=== PATIENT | female | born 1990 | race Caucasian/White ===

== ENCOUNTER 2020-11-09 16:54 | Emergency (ER) | payer BC, OTHER ==
[2020-11-09 17:07] VITALS: BP 119/82; PULSE 68
--- NOTE | 2020-11-09 17:15 | EDM.PDOC ---
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 Patient is roughly 17 weeks . She is a G3, P2. She states that she was trying to load her children into the car, when she slipped and ended up landing on her right side. It was shortly after the fall, that she developed some mild abdomen cramping and vaginal spotting, at first this was dark red to brown, and she notes that this is become more bright. She states this is spotting however not a gush of blood or fluids. She does note that the has been going well otherwise. She called her DATA WAREHOUSE MANAGER, Dr. Grayson, and she told her to come to the ER for evaluation. She did not take anything for the pain at home, and again notes this to be more of a abdomen cramp like she would feel when she would get her period. She would rate this a 3 out of 10 on the pain scale. She has not had any fevers or chills, cough/shortness of breath, nausea/vomiting/diarrhea. 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 ED EXAM - Physical Exam Exam: See Below Exam Limited By: No Limitations General Appearance: Alert, WD/WN, No Apparent Distress Respiratory/Chest: No Respiratory Distress, Lungs Clear, Normal Breath Sounds, No Accessory Muscle Use, Chest Non-Tender Cardiovascular: Normal Peripheral Pulses, Regular Rate, Rhythm, No Edema GI/Abdominal Exam: Normal Bowel Sounds, Soft, Non-Tender, No Distention, No Mass (Female) Exam: Normal Bimanual Exam, Vaginal Bleeding (scant amount). No: Cervical Dilatation, Cervical Fluid, Tissue Present in Cervix/Vagina Heart Tones: Present Heart Tones per Min: 144 Movement: Not Appreciated Neurological: Alert, Oriented, Normal Cognition, No Motor/Sensory Deficits Psychiatric: Normal Affect, Normal Mood Skin Exam: Warm, Dry, Intact, Normal Color, No Rash Course - Vital Signs Last Recorded V/S: Last Vital Signs Temp 98.9 F 11/09/20 17:03 Pulse 68 11/09/20 17:03 Resp 16 11/09/20 17:03 BP 119/82 11/09/20 17:03 Pulse Ox 100 11/09/20 17:03 - Orders/Labs/Meds Orders: Active Orders 24 hr Category Date Time Status RH IMMUNE GLOBULIN [BBK] Stat Lab 11/09/20 18:03 Results RHOGAM, [RHIG WORKUP, ] [BBK] Stat Lab 11/09/20 18:03 Results TYPE AND SCREEN [BBK] Stat Lab 11/09/20 18:03 Results Labs: Laboratory Tests 11/09/20 Range/Units 18:03 Blood Type O NEGATIVE Gel Antibody Screen Negative Rhogam Indicated Yes - Re-Assessments/Exams Free Text/Narrative Re-Assessment/Exam: 11/09/20 17:33 Patient presents to the ED for the evaluation of her fall in . Review of her old notes does indicate that she might be Rh-. We will ascertain if this is true, and she might need RhoGam since she is having some vaginal bleeding. We will get an abdominal ultrasound to evaluate for viability however we did get heart tones at 144 bpm, which is reassuring. 11/09/20 18:35 Ultrasound has been done, there is a hypoechoic area between the placenta and uterine wall which appears hypervascular by Doppler. Difficult to exclude hematoma interspersed with vascular elements. Follow-up is recommended in several days. Patient's uterine is low-lying, there is normal heart activity seen in the fetus is mobile. There is minimal debris seen next to the internal cervical os as well. Patient notes that she has been up to the bathroom multiple times since her ultrasound and her vaginal spotting has ceased. I did call Dr. Grayson, patient's DATA WAREHOUSE MANAGER and made her aware of these results, and she notes that follow-up in a few days, possibly Saturday early would be appropriate, patient is to call her office and make this appointment. 11/09/20 19:55 There has been some hesitation on the RhoGam injection, patient is not really wanting to get the RhoGam at today's visit however it is clinically indicated and Dr. Grayson has told me 3 different times on 3 different occasions that she would like the patient to have it. I did go over the clinical concerns regarding not getting the RhoGam however the patient still hesitant and is refusing at this time. She would like to talk with Dr. Terrell before doing this she is supposed to get close follow-up, but this is not guaranteed on when it can happen. I did again go over the maternal blood sharing, and how this puts her at risk for complications. Patient has still refused. Departure - Departure Time of Disposition: 18:37 Disposition: Home, Self-Care 01 Condition: Good Clinical Impression: Vaginal bleeding in - Discharge Information *PRESCRIPTION DRUG MONITORING PROGRAM REVIEWED*: No *COPY OF PRESCRIPTION DRUG MONITORING REPORT IN PATIENT KENNY: No Instructions: Subchorionic Hematoma Referrals: Nay Grayson MD [Primary Care Provider] - (f/u saturday or early , call to make the appt) Forms: ED Department Discharge Additional Instructions: You were evaluated in the ER today regarding your abdominal pain/vaginal bleeding in . You did have some labs drawn, and these were within normal limits, your blood type is O negative. You did NOT receive RhoGam at today's visit, This does put you at higher risk for spontaneous miscarriage and possible future complications. Your ultrasound demonstrated a mobile fetus, with a hypoechoic area between the placenta and uterine wall which could likely be a hematoma with a heart rate of 148 bpm. Follow-up is recommended in several days for repeat ultrasound. I did call Dr. Grayson and she states that you may follow-up on Saturday or early for repeat ultrasound. You will have to call her office and make this appointment, for reexamination. A copy of this note will be sent to her office for her review. Recommend that you do not lift anything heavier than a gallon of milk (5 lbs), do not engage in sexual activities, try to get as much pelvic rest as possible for the next few days. Please try not to exert yourself, rest and relax, and take it easy. If you are bleeding through more than 1-2 maxi pads every couple hours, this would be cause for concern to return to the ER for immediate management. Please return to the ED at any time if your symptoms change or worsen. Sepsis Event Note (ED) - Evaluation Sepsis Screening Result: No Definite Risk - Focused Exam Vital Signs: Vital Signs Temp Pulse Resp BP Pulse Ox 11/09/20 17:03 98.9 F 68 16 119/82 100 - My Orders Last 24 Hours: My Active Orders 11/09/20 18:03 RH IMMUNE GLOBULIN [BBK] Stat RHOGAM, [RHIG WORKUP, ] [BBK] Stat TYPE AND SCREEN [BBK] Stat - Assessment/Plan Last 24 Hours: My Active Orders 11/09/20 18:03 RH IMMUNE GLOBULIN [BBK] Stat RHOGAM, [RHIG WORKUP, ] [BBK] Stat TYPE AND SCREEN [BBK] Stat
--- NOTE | 2020-11-09 18:26 | US ---
Obstetrical ultrasound: Multiple real-time images were obtained transabdominally. Comparison: No previous study for current . presentation: Mobile Placenta: Anterior and low lying Amniotic fluid: KALIE 11.8 cm Hypoechoic area is identified between the placenta and uterine wall. This area is somewhat hypervascular. Difficult to completely exclude a hematoma interspersed with vascular elements. Follow-up is recommended. There is minimal area of debris in front of the internal cervical os. Cervical length is 4.3 cm. Heart rate is 148 bpm Impression: 1. Hypoechoic area between the placenta and uterine wall which appears hypervascular by Doppler evaluation. Difficult to exclude a hematoma interspersed with vascular elements. Follow-up recommended in several days. 2. Uterine is low lying. 3. Normal heart activity is seen. 4. Minimal debris seen next to the internal cervical os. Diagnostic code #3
== END 2020-11-09 20:09 | disposition home or self-care (01) ==
LOC: JD.ED 16:54
DX: O20.9 Hemorrhage in early pregnancy, unspecified (principal); Z3A.17 17 weeks gestation of pregnancy
CPT/HCPCS: 36415; 76815; 76815-26; 86850; 86900; 86901; 99283; 99284-25

== ENCOUNTER 2021-04-09 23:55 | Inpatient (IN) | payer BC ==
[2021-04-10] MEDS ORDERED: Nalbuphine 10 MG/1 ML Vial IVPUSH PRN (00:47)
[2021-04-10] MEDS ORDERED: Acetaminophen 325 MG Tab PO PRN ×2 (00:47→05:56)
[2021-04-10] MEDS ORDERED: Sodium Chloride 0.9% 10 ML Syringe FLUSH PRN (00:47)
[2021-04-10] MEDS ORDERED: Lidocaine 1% 50 ML MDV INJECT ONE (00:47)
[2021-04-10] MEDS ORDERED: Calcium Carbonate 500 MG Tab.Chew PO PRN (00:47)
[2021-04-10] MEDS ORDERED: Lactated Ringers 1,000 ML IV SCH (01:00)
[2021-04-10] MEDS ORDERED: Oxytocin/Lactated Ringers 10 UNIT/1,000 ML BAG IV SCH ×2 (01:00)
--- NOTE | 2021-04-10 03:41 | PCM.LDHP ---
L&D History of Present Illness - General Date of Service: 04/10/21 Admit Problem/Dx: Patient Status Order with Admit Dx/Problem 04/10/21 00:06 Patient Status [ADT] Routine 04/10/21 00:49 Patient Status [ADT] Routine Admission Diagnosis/Problem Admission Diagnosis/Problem Active labor 04/10/21 03:30 Awilda is a 31-year-old 4 para 2-0-1-2 female admitted on the early a.m. of 04/10/2021 at 38-5/7 weeks gestational age with an ultrasound determined JERALD of 04/18/2021 in active labor with progressive cervical dilation. Source of Information: Patient History Limitations: Reports: No Limitations - History of Present Illness Introduction:: Awilda is a 31-year-old 4 para 2-0-1-2 female admitted on the early a.m. of 04/10/2021 at 38-5/7 weeks gestational age with an ultrasound determined JERALD of 04/18/2021 in active labor with progressive cervical dilation. Progressed approximately 7 to 8 cm, bag pal is intact. Reports contractions starting last evening and progressing density and frequency. She does report having had an outbreak of genital HSV approximately 12 days ago. She has been on acyclovir 1000 mg/day since that time and has no lesions today. She is doing a natural labor without any analgesia. 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 Cycles every 30 days. Last menstrual period was 07/06/2020. Her working JERALD however was based upon ultrasound done on 08/17/2020 at 5-1/7 weeks gestational age. Been seen on a very regular basis throughout the starting at weeks. Weight gain has been approximately 25 pounds. Fundal height growth has been appropriate and vital signs have been stable. Patient has declined her 1 hour GTT as she feels she does not have any risk factors for gestational diabetes. She plans on taking the placenta home for consumption. labs: Patient's blood is O- with a negative antibody screen. She had RhoGam at the end of second trimester . Her first hemoglobin was 10.6 g and platelets were 247,000. Her rubella titer is equivocal and patient would be a candidate for MMR if she is excepting of it. RPR is nonr eactive. Second trimester hemoglobin was 13.1. Platelets at that time were 205,000. She is group B strep negative. Chlamydia and gonorrhea were not detected. HIV, hepatitis C, hepatitis B antigen were nonreactive. Allergies: None Medications: 1. Valacyclovir 1000 mg twice daily 2. Probiotic 1 capsule per mouth 1 time per day 3. vitamins daily 4. Pyridoxine daily Past medical history: 1. Vaginal delivery x2 2. Miscarriage x1 3. Abnormal Pap smear x1. 4. Genital herpes 5. depression Past surgical history: 1. Laparoscopic cholecystectomy 2. ERCP Family history: Father with COPDsmoker. Mother with breast cancer. Mother with depression. Sister with migraines diabetes. 1 sister with thyroid disorder. 1 brother who is alive and healthy. Maternal grandfather secondary to heart issues. Maternal grandfather secondary to esophageal cancer. Paternal grandmother secondary to breast cancer in paternal grandfather with history of lung cancer and COPD. Maternal aunt with breast cancer. Paternal uncle with kidney cancer. 1 cousin with breast cancer. Social history: Patient is . is Benedict Rothman. She does not use any significance alcohol, drugs or tobacco. She lives in [facility]. Review of systems: In general patient is presently having active labor with discomfort related to contractions. Skin: Negative Lungs: No infectious symptoms or shortness of breath Cardiovascular: No chest pain or exercise intolerance Breasts: No lumps, changes in size, pain, dimpling, discharge or axillary or supraclavicular concerns. GI: Negative : Body habitus changes secondary to . Musculoskeletal: Negative Neurological: Negative Physical exam: In general the patient is well-developed, well-nourished, pleasant female of stated age in no acute distress. Skin is warm dry without lesions. HEENT, neck and back within normal limits. Lungs are clear with good breath sounds in all lung galdamez. Cardiovascular exam shows regular and rhythm without murmurs. Abdomen is gravid with fundal height consistent with dates. Genital per nurse evaluation at this point consistent with 8 cm dilation. Bulging bag of pal present. No leakage of fluid at this point.. Extremities and neurological exam are grossly within normal limits. - Related Data Allergies/Adverse Reactions: Allergies Allergy/AdvReac Type Severity Reaction Status Date / Time No Known Allergies Allergy Verified 11/09/20 17:07 Home Medications: Home Meds PNV95/Ferrous Fumarate/FA [ Multivitamins] 1 tab PO DAILY 07/25/15 [History] valACYclovir [Valtrex] 1,000 mg PO DAILY 07/25/15 [History] Past Medical History Other HEENT History: wears glasses, contacts Other OB/BYN History: currently , mastitis - Past Surgical History GI Surgical History: Reports: Cholecystectomy, ERCP H&P Review of Systems - Review of Systems: Review Of Systems: See Below L&D Exam - Exam Exam: See Below - Vital Signs Weight: 82.372 kg - Patient Data Lab Results Last 24 hrs: Laboratory Results - last 24 hr 04/10/21 04/10/21 04/10/21 Range/Units 00:29 01:00 01:00 WBC 10.58 H (3.98-10.04) K/mm3 RBC 4.45 (3.98-5.22) M/mm3 Hgb 13.2 (11.2-15.7) gm/dl Hct 39.6 (34.1-44.9) % MCV 89.0 D (79.4-94.8) fl MCH 29.7 (25.6-32.2) pg MCHC 33.3 (32.2-35.5) g/dl RDW Std Deviation 43.1 (36.4-46.3) fL Plt Count 191 (182-369) K/mm3 MPV 9.7 (9.4-12.3) fl Neut % (Auto) 65.0 (34.0-71.1) % Lymph % (Auto) 26.6 (19.3-51.7) % [place] % (Auto) 6.9 (4.7-12.5) % Eos % (Auto) 0.7 (0.7-5.8) Baso % (Auto) 0.2 (0.1-1.2) % Neut # (Auto) 6.89 H (1.56-6.13) K/mm3 Lymph # (Auto) 2.81 (1.18-3.74) K/mm3 [place] # (Auto) 0.73 H (0.24-0.36) K/mm3 Eos # (Auto) 0.07 (0.04-0.36) K/mm3 Baso # (Auto) 0.02 (0.01-0.08) K/mm3 SARS-CoV-2 RNA (JENNIE) Negative (NEGATIVE) Blood Type O NEGATIVE Gel Antibody Screen Positive Result Diagrams: 04/10/21 01:00 - Problem List (1) 38 weeks gestation of SNOMED Code(s): 59177919 ICD Code: Z3A.38 - 38 WEEKS GESTATION OF Status: Acute Current Visit: Yes (2) Recurrent genital HSV (herpes simplex virus) infection SNOMED Code(s): 112654190 ICD Code: A60.00 - HERPESVIRAL INFECTION OF UROGENITAL SYSTEM, UNSPECIFIED Status: Acute Current Visit: Yes (3) History of depression, currently in third trimester SNOMED Code(s): 98594539 ICD Code: O99.891 - OTH DISEASES AND CONDITIONS COMPLICATING ; Z86.59 - PERSONAL HISTORY OF OTHER MENTAL AND BEHAVIORAL DISORDERS Status: Acute Current Visit: Yes Problem List Initiated/Reviewed/Updated: Yes Orders Last 24hrs: Active Orders 24 hr Category Date Time Status Patient Status [ADT] Routine ADT 04/10/21 00:49 Active Activity as Tolerated [RC] PFP Care 04/10/21 00:49 Active Communication Order [RC] ASDIRECTED Care 04/10/21 00:49 Active Heart Tones [RC] ASDIRECTED Care 04/10/21 00:49 Active Non Stress Test [RC] PER UNIT ROUTINE Care 04/10/21 00:06 Active Notify Provider [RC] PFP Care 04/10/21 00:49 Active Notify Provider [RC] PRN Care 04/10/21 00:49 Active Peripheral IV Care [RC] . DIRECTED Care 04/10/21 00:49 Active Pump Management, Intrathecal [RC] ASDIRECTED Care 04/10/21 00:50 Active Urinary Catheter Assessment [RC] ASDIRECTED Care 04/10/21 00:47 Active Vital Signs [RC] PER UNIT ROUTINE Care 04/10/21 00:06 Active Regular Diet [DIET] Diet 04/10/21 Breakfast Active ANTIBODY IDENTIFICATION [BBK] Stat Lab 04/10/21 01:00 Results RAPID PLASMA REAGIN,RPR [CHEM] Stat Lab 04/10/21 01:00 Received TYPE AND SCREEN [BBK] Stat Lab 04/10/21 01:00 Results Acetaminophen [TylenoL] Med 04/10/21 00:47 Active 650 mg PO Q4H PRN Calcium Carbonate [Tums] Med 04/10/21 00:47 Active 1,000 mg PO Q2H PRN Lactated Ringers [Ringers, Lactated] 1,000 ml Med 04/10/21 01:00 Active IV ASDIRECTED Nalbuphine [Nubain] Med 04/10/21 00:47 Active 10 mg IVPUSH Q2H PRN Oxytocin/Lactated Ringers [Pitocin in LR 10 Units/1,000 Med 04/10/21 01:00 Active ML] 10 unit in 1,000 ml IV .CONTINUOUS Oxytocin/Lactated Ringers [Pitocin in LR 10 Units/1,000 Med 04/10/21 01:00 A ctive ML] 10 unit in 1,000 ml IV TITRATE Sodium Chloride 0.9% [Saline Flush] Med 04/10/21 00:47 Active 10 ml FLUSH ASDIRECTED PRN Electronic Heart Tones Ext w TOCO [WOMSER] Ot 04/10/21 00:49 Ordered Routine Electronic Heart Tones Internal [WOMSER] Per Unit Ot 04/10/21 00:49 Ordered Routine Peripheral IV Insertion Adult [OM.PC] Routine Ot 04/10/21 00:49 Ordered Resuscitation Status Routine Resus Stat 04/10/21 00:06 Ordered Medication Orders Acetaminophen (Acetaminophen 325 Mg Tab) 650 mg PO Q4H PRN PRN Reason: Pain (Mild 1-3) and fever Calcium Carbonate/Glycine (Calcium Carbonate 500 Mg Tab.Chew) 1,000 mg PO Q2H PRN PRN Reason: Indigestion Lactated Ringer's (Ringers, Lactated) 1,000 mls @ 100 mls/hr IV ASDIRECTED SHADY Oxytocin/Lactated Ringer's (Pitocin In Lr 10 Units/1,000 Ml) 10 unit in 1,000 mls @ 12 mls/hr IV TITRATE SHADY; Protocol Oxytocin/Lactated Ringer's (Pitocin In Lr 10 Units/1,000 Ml) 10 unit in 1,000 mls @ 500 mls/hr IV .CONTINUOUS SHADY Nalbuphine HCl (Nalbuphine 10 Mg/1 Ml Vial) 10 mg IVPUSH Q2H PRN PRN Reason: Pain Sodium Chloride (Sodium Chloride 0.9% 10 Ml Syringe) 10 ml FLUSH ASDIRECTED PRN PRN Reason: Keep Vein Open Assessment/Plan Comment:: 1.Awilda is a 31-year-old 4 para 2-0-1-2 female admitted on the early a.m. of 04/10/2021 at 38-5/7 weeks gestational age with an ultrasound determined JERALD of 04/18/2021 in active labor with progressive cervical dilation. 2. Patient plans to breast-feed 3. Patient desires natural labor 4. Risk factors include history of HSV with onset of most recent infection approximately 12 days ago. Patient on high dose valacyclovir since onset with no symptomatology or signs at this time of genital HSV. 5. History of depressionpatient planning to consume placenta after delivery to prophylax for this. Plan: 1. Anticipate 2. Natural labor 3. Support breast-feeding decision 4. Risks of consuming placenta after is discussed in detail. Patient will sign a release of responsibility 5. Routine labs upon admission recommended include COVID-19, CBC, RPR per protocol.
--- NOTE | 2021-04-10 05:33 | PCM.SN.2 ---
- Free Text/Narrative Note: Delivery note: Stage I: Awilda is a 31-year-old 4 now para 3-0-1-3 female admitted on the early a.m. of 04/10/2021 at 38-5/7 weeks gestational age with an ultrasound determined JERALD of 04/18/2021 in active labor with progressive cervical dilation. She still is progressed to complete cervical dilation by appr oximately 0430 hrs. on 04/10/2021. Bag of pal remained intact until very close to the end of labor at which time she began leaking and had a flaccid forebag. heart tones reassuring throughout the labor pattern. She did natural labor without any medication analgesia. Stage II: The patient delivered at 0507 hrs. on 04/10/2021. She delivered a female infant weighing approximately 3600 g (7 pounds 15 ounces) and a left occiput anterior position. The shoulders were delivered with gentle downward and then upward traction. Baby was placed on mom's abdomen and dried with warm blanket. Nose and mouth were bulb suctioned. The umbilical cord was allowed to pulsate for 3 minutes. It was then clamped x2 and cut. There were 3 vessels in the umbilical cord. Cord blood was obtained. The perineum and vagina were intact and no suturing was required. Stage III: Placenta delivered at 0516 hrs. in a Ledesma presentation, it appeared intact and complete and was given to the patient and her as they intended to take at home. The potential risks of conception of the placenta are discussed with the patient and her . They appear to understand and have signed a release of responsibility form. Patient plans to breast-feed. Blood loss 150 cc. Condition: Good.
[2021-04-10] MEDS ORDERED: Benzocaine/Menthol 20%-0.5% Spray 56 GM Canister TOP PRN (05:56)
[2021-04-10] MEDS ORDERED: Witch Hazel Medicated Pads 40/Jar TOP PRN (05:56)
[2021-04-10] MEDS: Ibuprofen 600 MG Tab PO PRN ×4 (06:07→20:08)
[2021-04-10] MEDS: Prenatal Multivitamin with Calcium/Folic Acid/Iron Tab PO SCH (10:06)
[2021-04-11] MEDS: Ibuprofen 600 MG Tab PO PRN ×2 (03:14→08:27)
[2021-04-11] MEDS: Prenatal Multivitamin with Calcium/Folic Acid/Iron Tab PO SCH (08:27)
--- NOTE | 2021-04-11 09:29 | PCM.DCSUM1 ---
Discharge Summary - Hospital Course Diagnosis: Stroke: No - Discharge Data Discharge Date: 04/11/21 Discharge Disposition: Home, Self-Care 01 Condition: Good - Referral to Home Health Primary Care Physician: Nay Grayson MD - Patient Summary/Data Hospital Course: Stage I: Awilda is a 31-year-old 4 now para 3-0-1-3 female admitted on the early a.m. of 04/10/2021 at 38-5/7 weeks gestational age with an ultrasound determined JERALD of 04/18/2021 in active labor with progressive cervical dilation. She still is progressed to complete cervical dilation by approximately 0430 hrs. on 04/10/2021. Bag of pal remained intact until very close to the end of labor at which time she began leaking and had a flaccid forebag. heart tones reassuring throughout the labor pattern. She did natural labor without any medication analgesia. Stage II: The patient delivered at 0507 hrs. on 04/10/2021. She delivered a female infant weighing approximately 3600 g (7 pounds 15 ounces) and a left occiput anterior position. The shoulders were delivered with gentle downward and then upward traction. Baby was placed on mom's abdomen and dried with warm blanket. Nose and mouth were bulb suctioned. The umbilical cord was allowed to pulsate for 3 minutes. It was then clamped x2 and cut. There were 3 vessels in the umbilical cord. Cord blood was obtained. The perineum and vagina were intact and no suturing was required. Stage III: Placenta delivered at 0516 hrs. in a Ledesma presentation, it appeared intact and complete and was given to the patient and her as they intended to take at home. The potential risks of conception of the placenta are discussed with the patient and her . They appear to understand and have signed a release of responsibility form. Patient plans to breast-feed. Blood loss 150 cc. Condition: Good. - Patient Instructions Diet: Heart Healthy Diet Activity: No Strenuous Activities Driving: May Drive Today Showering/Bathing: May Shower - Discharge Plan *PRESCRIPTION DRUG MONITORING PROGRAM REVIEWED*: No *COPY OF PRESCRIPTION DRUG MONITORING REPORT IN PATIENT KENNY: No Home Medications: Home Meds PNV95/Ferrous Fumarate/FA [ Multivitamins] 1 tab PO DAILY 07/25/15 [History] valACYclovir [Valtrex] 1,000 mg PO DAILY 07/25/15 [History] - Discharge Summary/Plan Comment DC Time >30 min.: Yes - General Info Date of Service: 04/11/21 Functional Status: Reports: Pain Controlled - Review of Systems General: Reports: No Symptoms HEENT: Reports: No Symptoms Pulmonary: Reports: No Symptoms Cardiovascular: Reports: No Symptoms Gastrointestinal: Reports: No Symptoms Genitourinary: Reports: No Symptoms Musculoskeletal: Reports: No Symptoms Skin: Reports: No Symptoms Neurological: Reports: No Symptoms Psychiatric: Reports: No Symptoms - Patient Data Vitals - Most Recent: Last Vital Signs Temp 36.1 C 04/11/21 03:14 Pulse 56 L 04/11/21 03:14 Resp 15 04/11/21 03:14 BP 105/62 04/11/21 03:14 Pulse Ox 94 L 04/11/21 03:14 Weight - Most Recent: 82.372 kg I&O - Last 24 hours: Intake & Output 04/10/21 04/11/21 04/11/21 22:59 06:59 14:59 Intake Total 2 Balance 2 Lab Results - Last 24 hrs: Laboratory Results - last 24 hr 04/10/21 04/10/21 04/10/21 Range/Units 01:00 01:00 11:53 RPR Non-reactive (NONREACTIVE) Blood Type O NEGATIVE Gel Antibody Screen Positive Antibody Identification Anti-D Screen 0 ros/5 flds - neg RhIG Candidate? Yes Rhogam Indicated Yes, baby rh pos H Med Orders - Current: Current Medications Acetaminophen (Acetaminophen 325 Mg Tab) 650 mg PO Q4H PRN PRN Reason: mild pain or fever Benzocaine/Menthol (Benzocaine/Menthol 20%-0.5% [place] 56 Gm Canister) 0 gm TOP ASDIRECTED PRN PRN Reason: Perineal Comfort Measure Ibuprofen (Ibuprofen 600 Mg Tab) 600 mg PO Q4H PRN PRN Reason: Mild pain or fever Last Admin: 04/11/21 08:27 Dose: 600 mg Documented by: Jo Multivit/Attraction Worker/Iron/Folic Ac ( Multivitamin With Calcium/Folic Acid/Iron Tab) 1 each PO DAILY SHADY Last Admin: 04/11/21 08:27 Dose: 1 each Documented by: Kera Miles (Kera Miles Medicated Pads 40/Jar) 1 pad TOP ASDIRECTED PRN PRN Reason: Perineal Comfort Measure Discontinued Medications Acetaminophen (Acetaminophen 325 Mg Tab) 650 mg PO Q4H PRN PRN Reason: Pain (Mild 1-3) and fever Calcium Carbonate/Glycine (Calcium Carbonate 500 Mg Tab.Chew) 1,000 mg PO Q2H PRN PRN Reason: Indigestion Lactated Ringer's (Ringers, Lactated) 1,000 mls @ 100 mls/hr IV ASDIRECTED SHADY Last Admin: 04/10/21 03:31 Dose: 500 mls/hr Documented by: Oxytocin/Lactated Ringer's (Pitocin In Lr 10 Units/1,000 Ml) 10 unit in 1,000 mls @ 12 mls/hr IV TITRATE SHADY; Protocol Oxytocin/Lactated Ringer's (Pitocin In Lr 10 Units/1,000 Ml) 10 unit in 1,000 mls @ 500 mls/hr IV .CONTINUOUS SHADY Last Admin: 04/10/21 05:10 Dose: 500 mls/hr Documented by: Lidocaine HCl (Lidocaine 1% 50 Ml Mdv) 20 ml INJECT ONETIME ONE Stop: 04/10/21 00:48 Nalbuphine HCl (Nalbuphine 10 Mg/1 Ml Vial) 10 mg IVPUSH Q2H PRN PRN Reason: Pain Sodium Chloride (Sodium Chloride 0.9% 10 Ml Syringe) 10 ml FLUSH ASDIRECTED PRN PRN Reason: Keep Vein Open - Exam General: Reports: Alert, Oriented HEENT: Reports: Pupils Equal, Pupils Reactive, EOMI, Mucous Membr. Moist/[place] Neck: Reports: Supple Lungs: Reports: Clear to Auscultation, Normal Respiratory Effort Cardiovascular: Reports: Regular Rate, Regular Rhythm GI/Abdominal Exam: Normal Bowel Sounds, Soft, Non-Tender, No Organomegaly, No Distention, No Abnormal Bruit, No Mass, Pelvis Stable Rectal (Female) Exam: Normal Exam Back Exam: Reports: Normal Inspection, Full Range of Motion Extremities: Normal Inspection
[2021-04-11 09:57] VITALS: BP 114/69; PULSE 67
== END 2021-04-11 13:00 | disposition home or self-care (01) | DRG 560 ==
LOC: JD.OBCHECK 23:55 → JD.OB 04-10 00:24 → JD.OBCHECK 04-10 00:48 → JD.OB 04-10 00:49 → OBSVTOIN 04-10 05:07 → JD.OB 04-10 05:08
PROVIDERS: ADMIT Obstetrics & Gynecology; ATTEND Obstetrics & Gynecology
PROC: 10E0XZZ Delivery of Products of Conception, External Approach (ICD-10-PCS; principal; 2021-04-10)
DX: O98.52 Other viral diseases complicating childbirth (principal); B00.9 Herpesviral infection, unspecified; Z3A.38 38 weeks gestation of pregnancy; Z37.0 Single live birth; Z20.822 Contact with and (suspected) exposure to COVID-19
CPT/HCPCS: 36415; 59025; 59409; 85025; 85461; 86592; 86850; 86870; 86900; 86901; A9270-GY; J2590; J2790; J7120; U0002